=== PATIENT | female | born 1970 | race Caucasian/White ===

== ENCOUNTER 2017-02-24 13:15 | Outpatient (CLI) | payer OTHER | END 2017-02-24 17:50 | disposition home or self-care (01) | LOC: SMA 13:15 | PROVIDERS: ATTEND Specialist | DX: Z12.31 Encounter for screening mammogram for malignant neoplasm of breast (principal) | CPT/HCPCS: G0202 ==

== ENCOUNTER 2017-03-16 10:48 | Outpatient (CLI) | payer OTHER | END 2017-03-16 21:04 | disposition home or self-care (01) | LOC: SMI 10:48 | DX: M25.462 Effusion, left knee (principal) | CPT/HCPCS: 73721 ==

== ENCOUNTER 2018-02-24 15:24 | Outpatient (CLI) | payer OTHER | END 2018-02-24 18:19 | disposition home or self-care (01) | LOC: SRD 15:24 | PROVIDERS: ATTEND Specialist | DX: Z12.31 Encounter for screening mammogram for malignant neoplasm of breast (principal) | CPT/HCPCS: 77067 ==

== ENCOUNTER 2020-09-20 09:45 | Outpatient (CLI) | payer OTHER | END 2020-09-20 20:55 | disposition home or self-care (01) | LOC: SMI 09:45 | DX: M17.12 Unilateral primary osteoarthritis, left knee (principal); Z12.31 Encounter for screening mammogram for malignant neoplasm of breast; M22.42 Chondromalacia patellae, left knee; M25.462 Effusion, left knee | CPT/HCPCS: 73721; 77067 ==

== ENCOUNTER 2021-02-18 11:23 | Outpatient (CLI) | payer OTHER | END 2021-02-18 21:10 | disposition home or self-care (01) | LOC: SMI 11:23 | DX: M17.11 Unilateral primary osteoarthritis, right knee (principal); M23.91 Unspecified internal derangement of right knee | CPT/HCPCS: 73564; 73721 ==

== ENCOUNTER 2022-07-16 07:56 | Outpatient (CLI) | payer OTHER ==
[2022-07-16 08:29] LABS: BASOPHILS # (AUTO) 0.1 K/uL (0.0-0.2); BASOPHILS % (AUTO) 0.7 % (0.0-2.0); EOSINOPHILS # (AUTO) 0.3 K/uL (0.0-0.4); EOSINOPHILS % (AUTO) 3.1 % (0.0-4.0); HEMATOCRIT 41.5 % (36-48); HEMOGLOBIN 13.8 g/dL (12.0-16.0); LYMPHOCYTES # (AUTO) 1.6 K/uL (1.0-5.5); LYMPHOCYTES % (AUTO) 18.2 % (20.5-51.5); MEAN CORPUSCULAR HEMOGLOBIN 29 pg (27-31); MEAN CORPUSCULAR HGB CONC 33 % (32-36); MEAN CORPUSCULAR VOLUME 88 fL (79.0-98.0); MONOCYTES # (AUTO) 0.6 K/uL (0.0-1.0); MONOCYTES % (AUTO) 7.2 % (1.7-9.3); NEUTROPHILS # (AUTO) 6.4 K/uL (1.8-7.7); NEUTROPHILS % (AUTO) 70.8 % (40.0-70.0); PLATELET COUNT (AUTO) 249 K/uL (130-430); RED BLOOD CELL COUNT(AUTO) 4.74 MIL/uL (4.2-6.2); RED CELL DISTRIBUTION WIDTH 15.2 % (9.0-15.0)
[2022-07-16 08:54] LABS: BILIRUBIN,URINE NEGATIVE (NEGATIVE); BLOOD, URINE NEGATIVE (NEGATIVE); CLARITY/URINE CLEAR (CLEAR); COLOR,URINE YELLOW (YELLOW); GLUCOSE,URINE NEGATIVE (NEGATIVE); KETONES,URINE NEGATIVE (NEGATIVE); LEUKOCYTE ESTERASE ,URINE NEGATIVE (NEGATIVE); NITRITE, URINE NEGATIVE (NEGATIVE); PROTEIN URINE NEGATIVE (NEGATIVE); UROBILINOGEN,URINE 0.2 (0.2-1.0)
[2022-07-16 08:59] LABS: ALBUMIN 3.8 g/dL (3.4-4.8); CALCIUM 9.3 mg/dL (8.4-11.0); CREATININE 0.63 mg/dL (0.55-1.30); FREE T4 (FREE THYROXINE) 1.1 ng/dL (0.6-1.6); THYROID STIMULATING HORMONE 4.34 uIu/mL (0.34-4.82); TOTAL BILIRUBIN 0.8 mg/dL (0.0-1.0)
== END 2022-07-16 20:31 | disposition home or self-care (01) ==
LOC: SMA 07:56
PROVIDERS: ATTEND Family Medicine
DX: Z00.00 Encounter for general adult medical examination without abnormal findings (principal); Z12.31 Encounter for screening mammogram for malignant neoplasm of breast; Z12.11 Encounter for screening for malignant neoplasm of colon; Z83.3 Family history of diabetes mellitus; N64.89 Other specified disorders of breast
CPT/HCPCS: 36415; 77067; 80053; 80061; 81003; 83036; 84439; 84443; 85025

== ENCOUNTER 2024-03-20 10:33 | Outpatient (CLI) | payer OTHER | END 2024-03-20 20:08 | disposition home or self-care (01) | LOC: SMA 10:33 | PROVIDERS: ATTEND Specialist | DX: Z12.31 Encounter for screening mammogram for malignant neoplasm of breast (principal) | CPT/HCPCS: 77067 ==